=== PATIENT | female | born 1985 | race Caucasian/White ===

== ENCOUNTER 2020-05-26 18:58 | Emergency (ER) | payer MEDICAID ==
[~2020-05-26] VITALS: Ht 149.9 cm; Wt 68.0 kg
[~2020-05-26 18:58] MED LIST: LEVO500T6 PO
[2020-05-26 19:02] VITALS: BP 155/84
[2020-05-26] MEDS ORDERED: LORazepam 2 MG/ML VIAL IVP ONE (19:20)
[2020-05-26] MEDS ORDERED: NACL 0.9% 1,000 ML IV ONE (19:30)
--- NOTE | 2020-05-26 19:53 | NUR ---
URINE SAMPLE OBTAINED AND SENT TO LAB
--- NOTE | 2020-05-26 20:15 | NUR ---
LABS DRAWN FROM IV START
[2020-05-26 20:38] LABS: BARBITURATE, URINE NEGATIVE ng/ml (NEG <=200); BENZODIAZEPINE, URINE NEGATIVE ng/mL (NEG <=200); CANNABINOID, URINE NEGATIVE ng/mL (NEG <=50); COCAINE, URINE NEGATIVE ng/mL (NEG <=300); OPIATE, URINE NEGATIVE ng/mL (NEG <=2000); PHENCYCLIDINE SCREEN,URINE NEGATIVE ng/mL (NEG <=25)
--- NOTE | 2020-05-26 20:51 | NUR ---
PT RESTING IN BED IN POSITION OF COMFORT, BED LOW AND LOCKED, SIDERAILS UP, VSS, WILL CONTINUE TO MONITOR
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
--- NOTE | 2020-05-26 21:44 | NUR ---
[facility] AT BEDSIDE GETTING STATEMENT FROM PT.
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
[2020-05-26 22:28] VITALS: BP 134/74
--- NOTE | 2020-05-26 22:28 | NUR ---
Patient discharged with v/s stable. Written and verbal after care instructions given and explained. Patient verbalized understanding. Ambulatory with steady gait. All questions addressed prior to discharge. Advised to follow up with PMD.
== END 2020-05-26 22:28 | disposition home or self-care (01) ==
LOC: MED 18:58
DX: F15.10 Other stimulant abuse, uncomplicated (principal); Z79.899 Other long term (current) drug therapy
CPT/HCPCS: 80305; 96361; 96374; 99283; J2060; J7030